=== PATIENT | male | born 1990 | race Caucasian/White ===

== ENCOUNTER 2022-04-10 04:00 | Emergency (ER) | payer BC, SELFPAY ==
[2022-04-10] VITALS (30 sets, daily range): BP systolic 129–149; BP diastolic 64–98; PULSE 96–115; RESP 10–21; TEMP 36.7–37.1; O2SAT 94–100
--- NOTE | ~2022-04-10 | XR_ITS ---
EXAMINATION: XR chest 2V DATE: 04/10/2022 04:51 INDICATION: Cough and chills TECHNIQUE: PA and lateral views of the chest were obtained. COMPARISON: None FINDINGS: Bilateral patchy airspace opacities throughout the left lung. No pleural effusion or pneumothorax. Th e cardiomediastinal silhouette is normal. Visualized bones and soft tissues are unremarkable. IMPRESSION: 1. Bilateral patchy airspace opacities throughout the left lung most likely aspiration and/or pneumon ia. Reviewed, dictated and finalized at location A. IMPRESSION: 1. Bilateral patchy airspace opacities throughout the left lung most likely asp iration and/or pneumonia.
--- NOTE | 2022-04-10 04:20 | ECG_ITS ---
Measurements Intervals [place] Rate: 109 P: 45 FL: 169 QRS: 27 QRSD: 99 T: 52 QT: 307 QTc: 415 Interpretive Statements SINUS TACHYCARDIA POSSIBLE LEFT ATRIAL ENLARGEMENT DELAYED PRECORDIAL R/S TRANSITION ABNORMAL ECG Electronically Signed On 04-10-2022 6:33:58 CDT by James Frye D.O.
--- NOTE | 2022-04-10 04:24 | ED.GENADULT ---
HPI - General Adult General Chief complaint: Upper Respiratory Infection <DO Lamont Hoff Last Filed: 04/10/22 07:07> Stated complaint: Shaking and Cough <DO Lamont Hoff Last Filed: 04/10/22 07:07> Time Seen by Provider: 04/10/22 04:12 <DO Lamont Hoff Last Filed: 04/10/22 07:07> Source: RN notes reviewed <Ayaan Rico DO - Last Filed: 04/10/22 07:07> History of Present Illness HPI narrative: Patient presents emergency department from home for shaking. Patient states that he had gone to bed feeling fine last night he states he woke up with a feeling of gastric reflux and then coughing episode he states that this coughing episode lasted for approximately an hour before he finally stopped coffee and was able to fall back asleep he states approximately an hour later after that he woke up shaking and cold in his bed he states he continued to have uncontrolled shaking his arms and legs for approximately an hour she is at this time he does feel better he feels improved he no longer feels cold he denies any measured fevers he denies any chest pain shortness of breath abdominal pain nausea vomiting diarrhea or any other symptoms states at this time he is asymptomatic <DO Lamont oHff Last Filed: 04/10/22 07:07> Related Data Allergies/adverse reactions: Allergies Allergy/AdvReac Type Severity Reaction Status Date / Time No Known Allergies Allergy Verified 04/10/22 04:18 <DO Lamont Hoff Last Filed: 04/10/22 07:07> Review of Systems Review of Systems: Gen.: Denies fevers or chills Eyes: Denies eye pain or visual change ENT: Denies congestion Respiratory: Denies shortness of breath reports cough CV: Denies chest pain or palpitations GI: Denies abdominal pain nausea, emesis or diarrhea Musculoskeletal: Denies back pain or muscle pain Neuro: Denies numbness, tingling, weakness or focal weakness reports shaking that is resolved Skin: Denies rash Except as documented, all other systems reviewed and negative <DO Lamont Hoff Last Filed: 04/10/22 07:07> PMFSH Past Medical History Medical History: Medical History (Updated 04/10/22 @ 07:06 by Ayaan Rico DO) Patient denies significant medical history <DO Lamont Hoff Last Filed: 04/10/22 07:07> Social History Social History: Social History (Updated 04/10/22 @ 04:25 by Ayaan Rico DO) Smoking status: Never smoker <Ayaan Rico DO - Last Filed: 04/10/22 07:07> Exam Narrative: APPEARANCE: No acute distress, nontoxic, resting in bed EYES: EOMI HEENT: Normocephalic, atraumatic, nares patent or mucosa moist erythema exudate posterior pharynx RESPIRATORY: No respiratory distress Clear to auscultation bilaterally with no rhonchi wheezing or rales. CARDIOVASCULAR: Regular rate and rhythm without murmurs rubs or gallops. ABDOMINAL: Soft, nontender, nondistended, no rebound or guarding MUSCULOSKELETAl: Moves all extremities. No clubbing, cyanosis or edema. NEURO: Awake and alert x 3. Following commands, speech normal, no focal deficits SKIN:: Warm, dry. No rashes lesions or abrasions PSYCHIATRIC: Normal affect/mood, <DO Lamont Hoff Last Filed: 04/10/22 07:07> Course Course Emergency Course: Discussed with patient results of workup and diagnosis. Discussed need for follow-up with primary care, proper use of medication, and reasons to return to the emergency department. Patient understands and agrees to current treatment plan Care turned over to Dr. Canales at shift change awaiting further evaluation after additional fluids and disposition <DO Lamont Hoff Last Filed: 04/10/22 07:07> Vital Signs Vital signs: Vital Signs Temperature 36.7 C 04/10/22 04:03 Pulse Rate 115 H 04/10/22 04:03 Respiratory Rate 20 04/10/22 04:03 Blood Pressure 129/98 H 04/10/22 04:03 Pulse Oximetry 100 04/10/22 04:03 Temperature 37.1 C
[2022-04-10] MEDS: SODIUM CHLORIDE 0.9% IV 1,000 ML 999 ML IV CONT ×2 (05:13→07:08)
[2022-04-10 05:31] LABS: Basophils Percent Auto 0.2 % (0.2-1.2); Eosinophils Absolute Auto 0.2 K/mm3 (0-0.3); Eosinophils Percent Auto 1.8 % (0-4.4); Hematocrit 43.5 % (42.0-52.0); Immature Granulocyte Absolute 0.05 K/mm3 (0.00-0.031); Immature Granulocyte Percent A 0.4 % (0-0.5); Lymphocytes Absolute Auto 1.01 K/mm3 (0.9-3.2); Lymphocytes Percent Auto 8.3 % (18.3-44.2); Mean Corpuscular HGB Conc 34.5 g/dl (32-36); Mean Corpuscular Hemoglobin 31.4 pg (26-34); Mean Platelet Volume 10.3 fl (7.4-10.4); Monocytes Absolute Auto 0.7 K/mm3 (0.1-0.6); Monocytes Percent Auto 5.6 % (2.6-8.5); Neutrophils Absolute Auto 10.1 K/mm3 (1.3-6.7); Neutrophils Percent Auto 83.7 % (45.5-73.1); Platelet Count Result 236 k/mm3 (150-375); Red Blood Count 4.78 M/mm3 (4.6-6.20); Red Cell Distribution Width 12.7 % (11.5-14.5); White Blood Count 12.1 K/mm3 (4.5-10.0)
[2022-04-10 05:39] LABS: Lactic Acid Reflex 1.9 mmol/L (0.7-2.0)
[2022-04-10 05:40] LABS: Alanine Aminotransferase 31 U/L (6-50); Albumin Level 3.9 g/dL (3.5-5.1); Alkaline Phosphatase 100 U/L (38-126); Anion Gap 7 mmol/L (8-16); Aspartate Amino Transferase 23 U/L (17-59); Bilirubin,Total 0.9 mg/dL (0.2-1.3); Blood Urea Nitrogen 17 mg/dL (9-20); Calcium 9.1 mg/dL (8.4-10.2); Carbon Dioxide 25 mmol/L (22-30); Chloride 106 mmol/L (98-107); Estimated CRCL calculation 117 ml/min; Estimated Glomerular Filt Rate > 60; Glucose 116 mg/dL (65-110); Potassium 4.1 mmol/L (3.4-5.0); Sodium 138 mmol/L (137-145)
[2022-04-10 06:07] LABS: SARS-CoV-2 RNA PCR Negative
[2022-04-10 06:08] LABS: Appearance Urine Clear (Clear); Bilirubin Urine Negative (Negative); Blood Urine Negative (Negative); Color Urine Yellow (Yellow); Glucose Urine UA Negative (Negative); Ketones Urine Negative (Negative); Leukocyte Esterase Ur Negative LEU/UL (Negative); Nitrate Urine Negative (Negative); Protein Urine Negative (Negative); Specific Grav Ur 1.025 (1.001-1.035); Urobilinogen Urine 0.2 mg/dL (<2.0)
[2022-04-10 06:12] LABS: RBC Urine 0-2 /hpf (0-2); WBC Urine 0-3 /hpf
[2022-04-10 06:13] LABS: Add Urine Microscopic? NO
[2022-04-10 06:26] LABS: D Dimer 0.42 ug/mL (<0.48)
[2022-04-10] MEDS: PANTOPRAZOLE SODIUM IV 40 MG VIAL IV PUSH (07:08)
[2022-04-10] MEDS: AMOXICILLIN/CLAVULANATE K 875-125 MG TAB 1 TABLET PO (07:08)
== END 2022-04-10 08:33 | disposition home or self-care (01) ==
PROVIDERS: Emergency Provider Emergency Medicine
DX: J69.0 Pneumonitis due to inhalation of food and vomit (principal); K21.9 Gastro-esophageal reflux disease without esophagitis; Z20.822 Contact with and (suspected) exposure to COVID-19; R00.0 Tachycardia, unspecified; R94.31 Abnormal electrocardiogram [ECG] [EKG]
CPT/HCPCS: 36415; 71046; 80053; 81003; 83605; 85025; 85380; 87040; 87804; 93005; 96361; 96374; 99284; A9270; C9113; C9803; J7030; U0003; U0005